=== PATIENT | female | born 1980 | race Caucasian/White ===

== ENCOUNTER 2020-05-30 12:01 | Emergency (ER) | payer MEDICAID ==
[~2020-05-30] VITALS: Ht 170.2 cm; Wt 100.2 kg
[2020-05-30 12:17] VITALS: BP 128/77
== END 2020-05-30 13:32 | disposition home or self-care (01) ==
LOC: ER 12:01
DX: O98.513 Other viral diseases complicating pregnancy, third trimester (principal); U07.1 COVID-19; Z3A.30 30 weeks gestation of pregnancy
CPT/HCPCS: 99283; C9803; U0003

== ENCOUNTER 2020-07-04 21:30 | Observation (INO) | payer MEDICAID ==
[~2020-07-04] VITALS: Ht 170.2 cm; Wt 107.0 kg
[2020-07-04] MEDS ORDERED: hydrOXYzine 25 MG TAB or CAP PO ONE (22:00)
== END 2020-07-04 23:49 | disposition home or self-care (01) ==
LOC: LDRP 21:30
PROVIDERS: ADMIT Obstetrics & Gynecology; ATTEND Obstetrics & Gynecology
DX: O62.9 Abnormality of forces of labor, unspecified (principal); Z3A.39 39 weeks gestation of pregnancy
CPT/HCPCS: 36415; 59025; 81002; 87426; G0378

== ENCOUNTER 2020-07-06 09:48 | Inpatient (IN) | payer MEDICAID ==
[~2020-07-06] VITALS: Ht 30.5 cm; Wt 0.5 kg
[2020-07-06] MEDS ORDERED: PREN-96 PO (10:28)
[2020-07-06] MEDS ORDERED: PHISODERM TOP SOLN 240ML BTL TOP PRN (11:45)
[2020-07-06] MEDS ORDERED: PENICILLIN G POT 5MIL/D5 50ML 50 ML IV ONE (11:45)
[2020-07-06] MEDS ORDERED: LIDOCAINE 2%HCL (LOCAL ANESTH.) INJ 20ML MDV IJ PRN (11:45)
[2020-07-06] MEDS ORDERED: LACTATED RINGER'S 1,000 ML IV SCH (11:45)
[2020-07-06] MEDS ORDERED: DERMOPLAST 60ML BOTTLE TOP PRN (11:45)
[2020-07-06 12:27] LABS: Basophils # (auto) 0 10 ^3/uL (0-0.2); Basophils % (auto) 0.3 % (0.0-2.0); Eosinophils # (auto) 0.1 10 ^3/uL (0-0.8); Eosinophils % (auto) 0.9 % (0.0-7.0); Hemoglobin 14.5 g/dL (12.2-16.2); Lymphocytes # (auto) 1.7 10 ^3/uL (0.4-5.4); Mean Corpuscular Hgb Conc. 33.6 g/dL (32.0-36.0); Mean Corpuscular Volume 92.1 fL (80.0-100.0); Monocytes # (auto) 0.9 10 ^3/uL (0-1.3); Monocytes % (auto) 6.5 % (0.0-12.0); Neutrophils # (auto) 11.1 10 ^3/uL (1.6-8.6); Neutrophils % (auto) 80.3 % (37.0-80.0); Platelet Count (auto) 227 10^3/uL (140-450); Red Blood Cells 4.67 10^6/uL (4.0-5.20); Red Cell Distribution Width 13.6 % (11.8-14.3); White Blood Cell 13.8 10^3/uL (4.4-10.8)
[2020-07-06 12:32] LABS: Urine Bacteria NONE SEEN /hpf (None Seen); Urine Blood TRACE /uL (Negative); Urine Specific Gravity 1.012 (1.001-1.035); Urine WBC 70 /hpf (0 - 5); Urine WBC Clumps PRESENT /hpf (None Seen)
[2020-07-06 12:36] LABS: Albumin 2.6 g/dL (3.4-5.0); Calcium 9.2 mg/dL (8.5-10.1); Potassium 3.6 mmol/L (3.5-5.1)
[2020-07-06 12:37] LABS: Alcohol, Urine < 3.0 mg/dL (0-10); Amphetamine Screen, Urine NEGATIVE (NEGATIVE); Barbiturate Scree,Urine NEGATIVE (NEGATIVE); Benzodiazephine Screen, Urine NEGATIVE (NEGATIVE); Cannabinoid Screen, Urine NEGATIVE (NEGATIVE); Cocaine Screen, Urine NEGATIVE (NEGATIVE); Opiate Scree,Urine NEGATIVE (NEGATIVE); Phencyclidine Screen, Urine NEGATIVE (NEGATIVE)
[2020-07-06 12:40] LABS: Bilirubin, Total 0.3 mg/dL (0.2-1.0); Total Protein 6.9 g/dL (6.4-8.2)
[2020-07-06 12:48] LABS: INR 0.91 (0.9-1.15); Partial Thromboplastin Time 26.7 sec (23.0-31.2)
[2020-07-06] MEDS ORDERED: PROMETHAZINE HCL 25 MG/ML 1ML IM ONE (15:45)
[2020-07-06] MEDS ORDERED: BUTORPHANOL TARTRATE 2 MG/1 ML VIAL IV PRN (15:45)
[2020-07-06] MEDS: PENICILLIN G POTASSIUM 2,500,000 UNITS in D5W 5% 50 ML IV SCH ×2 (16:58→21:07)
[2020-07-06] MEDS ORDERED: LACT. RINGERS/OXYTOCIN 20UNITS 1,000 ML IV ONE ×2 (18:15→18:30)
[2020-07-06] MEDS: WITCH HAZEL-GLYCERIN PAD TOP PRN (18:22)
[2020-07-06] MEDS ORDERED: LACT. RINGERS/OXYTOCIN 20UNITS 1,000 ML IV SCH (18:30)
[2020-07-06] MEDS ORDERED: NALOXONE HCL 0.4 MG/ML VIAL IV ONE ×2 (18:45→19:30)
[2020-07-06] MEDS ORDERED: ROPIVACAINE HCL 100 ML EPI SCH ×2 (18:45→19:30)
[2020-07-06] MEDS ORDERED: ePHEDrine SULFATE 50 MG/ML AMP IV ONE ×2 (18:45→19:30)
[2020-07-06] MEDS ORDERED: SODIUM CHLORIDE 0.9% 500 ML IV PRN (19:30)
[2020-07-07] MEDS ORDERED: IBUPROFEN 600 MG TAB PO PRN
--- NOTE | 2020-07-07 00:42 | NUR ---
0042Ambulation: Patient OOB with standby assistance by RN. Patient ambulated to bathroom with steady gait. Patient able to void without difficulty. Pericare teaching provided with returned demonstration by patient. Clean gown provided and bed linen changed. Patient ambulated back to bed with steady gait and no distress noted.
[2020-07-07 03:00] VITALS: BP 119/58
[2020-07-07 07:00] VITALS: BP 119/58
[2020-07-07 07:06] LABS: RPR Non Reactive (Non Reactive)
--- NOTE | 2020-07-07 09:16 | NUR ---
IV removal IV DC'd with sterile technique, catheter fully intact. Pressure dressing applied to site. Patient tolerated procedure well.
[2020-07-07 11:00] VITALS: BP 133/73
[2020-07-07 15:10] VITALS: BP 122/73
[2020-07-07 19:00] VITALS: BP 131/89
[2020-07-08] VITALS: BP 119/74
[2020-07-08 03:00] VITALS: BP 126/88
[2020-07-08] MEDS: WITCH HAZEL-GLYCERIN PAD TOP PRN (06:24)
[2020-07-08 06:42] VITALS: BP 115/78
--- NOTE | 2020-07-08 12:21 | NUR ---
Pt is an alert and oriented female that is cooperative. Pt states this is her first baby and she resides with her mother. FOB is present at bedside and is involved as well as supportive. Pt states she will be and has everything she needs for the baby. States she is unemployed and that she will be applying for WIC today. Additionally states that her mother will be helping her with the baby also.l Pt reported to have a positive UDS for THC during . Pt and baby are both negative during this admission. Pt counseled on the harmfulness of drug usage for herself and baby. Pt states she was arrested a few months back for outstanding parking and speeding tickets and consequently was in shelter for 1 month. Pt states she was released in March but was put on house arrest and sees her security control room officer within the first 10 days of the month. PO has been seen this month and is aware that she has delivered. Pt appears to be bonding well with baby and exhibiting appropriate behavior. Pt has transportation home. No further social service concerns or needs. Addendum: 07/08/20 at 1227 by ANA LAYTON Amended: Links added.
[2020-07-08] MEDS ORDERED: TETANUS-DIPTH-ACEL PERTUSSIS 0.5ML SYR Tdap IM ONE (13:15)
--- NOTE | 2020-07-08 13:30 | NUR ---
Discharge: Discharge instructions given as ordered. Pt encouraged to follow up with CLINICAL DIRECTOR as instructed. All questions and concerns addressed. Patient verbalized understanding. Medication reconciliation completed and copy given to patient. All required/requested vaccines given and copies of vaccinations given to patient. Patient encouraged to prepare to depart unit.
[2020-07-08 14:00] VITALS: BP 117/74
--- NOTE | 2020-07-08 14:10 | NUR ---
Discharge: Patient taken to vehicle via wheelchair with all personal belongings, accompanied by staff and family member. No distress noted at time of departure, no adverse changes in status since initial assessment.
== END 2020-07-08 14:10 | disposition home or self-care (01) | DRG 560 ==
LOC: OBSVTOIN 09:48 → LDRP 09:48
PROVIDERS: ADMIT Specialist; ATTEND Specialist
PROC: 10E0XZZ Delivery of Products of Conception, External Approach (ICD-10-PCS; principal; 2020-07-06)
PROC: 3E0R3BZ Introduction of Anesthetic Agent into Spinal Canal, Percutaneous Approach (ICD-10-PCS; 2020-07-06)
PROC: 00HU33Z Insertion of Infusion Device into Spinal Canal, Percutaneous Approach (ICD-10-PCS; 2020-07-06)
PROC: 0KQM0ZZ Repair Perineum Muscle, Open Approach (ICD-10-PCS; 2020-07-06)
DX: O71.4 Obstetric high vaginal laceration alone (principal); Z3A.40 40 weeks gestation of pregnancy; Z37.0 Single live birth
CPT/HCPCS: 36415; 59025; 59409; 62282; 76818; 80053; 80307; 81001; 81002; 85025; 85610; 85730; 86592; 86850; 86870; 86900; 86901; 87340; 90715; 94760; 96360; 96361; 96365; 96366; 96372; G0378; J2540; J2590; J7060